=== PATIENT | female | born 1970 | race Hispanic/Latino ===

== ENCOUNTER 2023-12-29 12:06 | Emergency (ER) | payer BC, OTHER ==
[~2023-12-29] VITALS: Ht 165.1 cm; Wt 107.5 kg
[2023-12-29 13:04] LABS: BASOPHILS # (AUTO) 0.06 K/uL (0.00-0.20); BASOPHILS % (AUTO) 0.4 % (0.0-5.0); EOSINOPHILS % (AUTO) 0.6 % (0.0-8.0); HEMATOCRIT 30.4 % (36-48); IMMATURE GRANULOCYTE ABSOLUTE 0.31 K/uL (0-1); MEAN CORPUSCULAR HEMOGLOBIN 26.4 pg (27.0-33.0); MEAN CORPUSCULAR HGB CONC 33.2 g/dL (32.0-36.0); MEAN CORPUSCULAR VOLUME 79.4 fL (79-99); MONOCYTES # (AUTO) 1.4 K/uL (0.1-1.0); MONOCYTES % (AUTO) 8.6 % (3.0-13.0); NEUTROPHILS # (AUTO) 12.5 K/uL (1.8-7.7); NEUTROPHILS % (AUTO) 76.5 % (40.0-77.0); PLATELET COUNT (AUTO) 251 K/uL (130-400); RED BLOOD CELL COUNT(AUTO) 3.83 MIL/uL (4.00-5.50); RED CELL DISTRIBUTION WIDTH 14.7 % (11.0-15.5); WHITE BLOOD COUNT (AUTO) 16.3 K/uL (4.8-10.8)
[2023-12-29 13:20] LABS: INR 1.08 (0.85-1.15); PROTHROMBIN TIME 12.5 SEC (9.6-11.6)
[2023-12-29 13:21] LABS: ALBUMIN 2.2 g/dL (3.5-5.0); CREATININE 0.9 mg/dL (0.5-1.5)
[2023-12-29 13:22] LABS: PARTIAL THROMBOPLASTIN TIME 35.2 SEC (26.3-35.5)
[2023-12-29] MEDS: 0.9%NACL 1000ML 1,710 ML IV ONE (13:22)
[2023-12-29] MEDS: ACETAMINOPHEN 500 MG TABLET PO ONE (13:23)
[2023-12-29 13:26] LABS: BILIRUBIN,TOTAL 0.9 mg/dL (0.2-1.0)
[2023-12-29 13:27] LABS: POTASSIUM 2.8 mmol/L (3.5-5.1)
[2023-12-29 14:10] LABS: BAND NEUTROPHILS % (MANUAL) 4 % (0-2); BASOPHILS % (MANUAL) 1 % (0-2); LYMPHOCYTES % (MANUAL) 14 % (22-44); MAN.DIFF COMMENT-IMPRESSION MANUAL DIFFERENTIAL; MONOCYTES % (MANUAL) 8 % (2-9); PLATELET MORPHOLOGY COMMENT ADEQUATE; SEGMENTED NEUTROPHILS % 73 % (40-70); TOTAL CELLS COUNTED 100; WBC MORPHOLOGY CONSISTENT W/DIFF
[2023-12-29] MEDS: KCL 20 MEQ ERTAB PO ONE ×2 (14:17→19:21)
[2023-12-29] MEDS: CEFTRIAXONE 2GM VIAL IVPB ONE (14:18)
[2023-12-29] MEDS ORDERED: LEVOFLOXACIN 500 MG/D5W 100 ML 100 ML IV SCH (17:00)
[2023-12-29] MEDS: LEVOFLOXACIN 500 MG/D5W 100 ML 100 ML IV ONE (18:04)
[2023-12-29 18:10] LABS: SARS-CoV-2, RNA, NAAT NEGATIVE SARS CoV-2 (NEGATIVE)
[2023-12-29 18:18] LABS: INFLUENZA TYPE A Negative For Type A (NEGATIVE); INFLUENZA TYPE B Negative For Type B (NEGATIVE)
[2023-12-29] MEDS ORDERED: MAGNESIUM 2GM PREMIX 50ML 50 ML IV SCH (18:30)
[2023-12-29] MEDS ORDERED: IPRATROPIUM/ALBUTEROL SULFATE 3 ML SOLUTION IH PRN (18:30)
[2023-12-29] MEDS ORDERED: ONDANSETRON 4MG INJ IVP PRN (18:30)
[2023-12-29 19:01] LABS: HEMOGLOBIN A1C 9.5 % (4.0-6.0)
[2023-12-29] MEDS: 0.9%NACL 1000ML 1,000 ML IV SCH (19:22)
[2023-12-29 19:24] LABS: MAGNESIUM 1.9 mg/dL (1.80-2.40)
[2023-12-29] MEDS ORDERED: CEFEPIME HCL 2 GM VIAL IVPB SCH (20:00)
[2023-12-29] MEDS ORDERED: POTASSIUM BICARB/CIT AC 25 MEQ TABLET.EFF PO ONE (20:00)
[2023-12-29] MEDS ORDERED: VANCOMYCIN PROTOCOL PER PHARMACY IV SCH ×2 (20:00→21:30)
[2023-12-29] MEDS ORDERED: GLUCAGON 1MG KIT 1 MG ML IM PRN (20:30)
[2023-12-29] MEDS ORDERED: DEXTROSE 50%-WATER 50 ML DISP.SYRIN IV PRN (20:30)
[2023-12-29] MEDS: CIPROFLOXACIN HCL/DEXAMETH 7.5 ML DROPS.SUSP OTIC SCH (21:00)
[2023-12-29] MEDS: INSULIN HUMULIN R 100 UNIT/ML 3ML SQ SCH (21:00)
[2023-12-29] MEDS: VANCOMYCIN 2GM/500 ML BAG 500 ML IV ONE (23:25)
[2023-12-29] MEDS: PANTOPRAZOLE 40 MG/VIAL IVP SCH (23:27)
[2023-12-29] MEDS: INSULIN GLARGINE 100 UNITS/ML 10 ML VIAL SQ SCH (23:31)
[2023-12-30] MEDS: ACETAMINOPHEN 500 MG TABLET PO PRN (03:16)
[2023-12-30 04:57] VITALS: TEMP 100.8
[2023-12-30] MEDS: CEFEPIME HCL 2 GM VIAL IVPB SCH (06:04)
[2023-12-30 07:09] VITALS: PULSE 84; RESP 18; O2SAT 98
[2023-12-30 07:23] LABS: BASOPHILS # (AUTO) 0.05 K/uL (0.00-0.20); BASOPHILS % (AUTO) 0.3 % (0.0-5.0); EOSINOPHILS # (AUTO) 0.09 K/uL (0.00-0.70); EOSINOPHILS % (AUTO) 0.6 % (0.0-8.0); IMMATURE GRANULOCYTE ABSOLUTE 0.28 K/uL (0-1); LYMPHOCYTES # (AUTO) 2.7 K/uL (1.0-4.8); LYMPHOCYTES % (AUTO) 16.7 % (21.0-51.0); MEAN CORPUSCULAR HEMOGLOBIN 26.6 pg (27.0-33.0); MEAN CORPUSCULAR HGB CONC 33.1 g/dL (32.0-36.0); MEAN CORPUSCULAR VOLUME 80.3 fL (79-99); MONOCYTES # (AUTO) 1.3 K/uL (0.1-1.0); MONOCYTES % (AUTO) 8.2 % (3.0-13.0); NEUTROPHILS # (AUTO) 11.7 K/uL (1.8-7.7); NEUTROPHILS % (AUTO) 72.5 % (40.0-77.0); PLATELET COUNT (AUTO) 304 K/uL (130-400); RED BLOOD CELL COUNT(AUTO) 3.61 MIL/uL (4.00-5.50); RED CELL DISTRIBUTION WIDTH 15.3 % (11.0-15.5); WHITE BLOOD COUNT (AUTO) 16.1 K/uL (4.8-10.8)
[2023-12-30 07:39] LABS: ALBUMIN 1.8 g/dL (3.5-5.0); BILIRUBIN,TOTAL 0.6 mg/dL (0.2-1.0); CREATININE 0.8 mg/dL (0.5-1.5); MAGNESIUM 2.5 mg/dL (1.80-2.40); POTASSIUM 3.1 mmol/L (3.5-5.1); TOTAL PROTEIN, SERUM 6.5 g/dL (6.0-8.3)
[2023-12-30 08:07] LABS: BASOPHILS % (MANUAL) 1 % (0-2); LYMPHOCYTES % (MANUAL) 16 % (22-44); MAN.DIFF COMMENT-IMPRESSION MANUAL DIFFERENTIAL; MONOCYTES % (MANUAL) 6 % (2-9); PLATELET MORPHOLOGY COMMENT ADEQUATE; SEGMENTED NEUTROPHILS % 77 % (40-70); TOTAL CELLS COUNTED 100
[2023-12-30] MEDS: VANCOMYCIN 1G/250ML KIT 250 ML IV SCH (11:49)
[2023-12-30 12:26] VITALS: O2SAT 99
[2023-12-30] MEDS: ONDANSETRON 4MG INJ IVP ONE (14:02)
[2023-12-30] MEDS: MORPHINE 4 MG SYG IVP ONE (14:02)
[2023-12-30 18:07] VITALS: BP 145/84; PULSE 78; RESP 18
[2023-12-30] MEDS: CYCLOBENZAPRINE HCL 10 MG TABLET PO ONE (20:09)
== END 2023-12-30 19:10 | disposition short-term general hospital (02) ==
LOC: EDH 12:06
DX: H66.93 Otitis media, unspecified, bilateral (principal); A41.9 Sepsis, unspecified organism; I10 Essential (primary) hypertension; E11.65 Type 2 diabetes mellitus with hyperglycemia; E78.00 Pure hypercholesterolemia, unspecified; E86.0 Dehydration; E66.9 Obesity, unspecified; K21.9 Gastro-esophageal reflux disease without esophagitis; F41.9 Anxiety disorder, unspecified; Z20.822 Contact with and (suspected) exposure to COVID-19
CPT/HCPCS: 99285; 96366 ×3; 70450; 96365; 71045; 96375 ×3; 87635; 96361 ×3; 83036; 82550; 83735 ×2; 84484; 85025 ×2; 85610; 85730; 85651; 87040 ×2; 87070; 87077; 87186; 87804 ×2; 82948 ×5; 83605; 36415 ×2; 70486; 96372; 96368; 96367 ×2; 80053 ×2; 86140 ×2; 84145 ×2; J1956; J7030 ×2; J0696; C9113; J3370 ×2; J1815; J2405; J2270; J0692 ×2